=== PATIENT | female | born 1955 | race Caucasian/White ===

== ENCOUNTER 2018-03-19 07:54 | Day surgery (SDC) | payer OTHER ==
[~2018-03-19] VITALS: Ht 172.7 cm; Wt 69.9 kg
[~2018-03-19 07:54] MED LIST: ADVIL200 MG PO; ANTIVERT12.5 MG PO; CLARITIN,ALAVAR10 MG PO; FLONASE ALLERG9.9 ML BOTH NARES; HUMALOG100 UNIT/2 SC; HUMULIN N100 UNIT/2 SC; LIPITOR10 MG PO; MAGNESIUM250 MG PO; VITAMIN B-1000 MCG/1 PO; VITAMIN D-32000 UNI2 PO; ZANTAC150 MG PO
[2018-03-19] MEDS ORDERED: OCUVITE TABLET1 EACH PO (08:37)
[2018-03-19 08:39] VITALS: BP 158/70
[2018-03-19 13:46] VITALS: BP 157/69
[2018-03-19 14:32] VITALS: BP 148/64
== END 2018-03-19 14:43 | disposition home or self-care (01) ==
LOC: EDBD → SDC 07:54
PROVIDERS: Ophthalmology
DX: E10.3531 Type 1 diabetes mellitus with proliferative diabetic retinopathy with traction retinal detachment not involving the macula, right eye (principal); H43.11 Vitreous hemorrhage, right eye; H35.371 Puckering of macula, right eye; E78.5 Hyperlipidemia, unspecified; Z86.19 Personal history of other infectious and parasitic diseases; J30.1 Allergic rhinitis due to pollen
CPT/HCPCS: 82948; J0690; J0713; J3300